=== PATIENT | female | born 1995 | race Caucasian/White ===

== ENCOUNTER 2025-03-18 17:26 | Emergency (ER) | payer MEDICARE, MEDICAID ==
[~2025-03-18] VITALS: Ht 152.4 cm; Wt 60.2 kg
[~2025-03-18 17:26] MED LIST: ATOM40CA16 PO; BENZ1GEL8 EX; CARB300C PO; CELE20TA PO; DOCU100C16 PO; IBUP-1022 PO; KEPP1TAB2 PO; LORA-243 PO; MONT-5 PO; POLY17PO18 PO; RANI-397 PO; TRAZ1TAB6 PO
[2025-03-18 17:38] VITALS: BP 157/102; TEMP 99.1; O2SAT 99
[2025-03-18] MEDS ORDERED: PRAZ1CAP (18:12)
[2025-03-18] MEDS ORDERED: OLAN2.5T53 (18:12)
[2025-03-18] MEDS ORDERED: BUSP10TA (18:12)
[2025-03-18 19:03] LABS: BASO # 0.1 10^3/uL (0.0-0.2); BASO % 1.7 % (0.0-1.0); EOS # 0.2 10^3/uL (0.0-0.5); EOS % 2.6 % (0.0-3.0); LYMPH # 2.4 10^3/uL (1.5-5.0); LYMPH % 30.4 % (24.0-44.0); MONO # 0.5 10^3/uL (0.0-0.8); MONO % 6.0 % (2.0-8.0); NEUTROPHILS # 4.6 10^3/uL (1.5-8.5); NEUTROPHILS % 59.0 % (36.0-66.0); PLATELET COUNT, AUTOMATED 284 10^3/uL (150-450)
[2025-03-18 19:26] LABS: KETONE, URINE AUTO RFX NEGATIVE (NEGATIVE); LEUKOCYTE ESTERASE UR AUTO RFX NEGATIVE (NEGATIVE); NITRITE, URINE AUTO RFX NEGATIVE (NEGATIVE); RBC, URINE AUTO RFX 1 /HPF (0-3); SQUAM EPITHELIAL CELL UR AURFX 6 /HPF (0-6); WBC, URINE AUTO RFX 1 /HPF (0-3)
[2025-03-18 19:29] LABS: ALT/SGPT 18 U/L (7.0-40); AST/SGOT 20 U/L (<34); CALCIUM LEVEL 10.3 MG/DL (8.5-10.1); CARBON DIOXIDE LEVEL 22 MMOL/L (20-31); CHLORIDE LEVEL 108 MMOL/L (98-107); CREATININE FOR GFR 0.68 MG/DL (0.55-1.30); GLOMERULAR FILTRATION RATE > 90.0 (>60); POTASSIUM SERUM 3.7 MMOL/L (3.5-5.1); SODIUM LEVEL 144 MMOL/L (136-145)
[2025-03-18 19:37] LABS: HCG, SERUM QUALITATIVE NEGATIVE (NEGATIVE)
[2025-03-18 20:04] LABS: Trichomonas vaginalis (AMP) NOT DETECTED (NEGATIVE)
[2025-03-18 20:28] LABS: GC DNA AMPLIFICATION NEGATIVE (NEGATIVE)
== END 2025-03-18 22:25 | disposition left against medical advice (07) ==
LOC: M ED 17:26
DX: Z53.21 Procedure and treatment not carried out due to patient leaving prior to being seen by health care provider (principal)

== ENCOUNTER 2025-03-28 17:55 | Emergency (ER) | payer MEDICARE, MEDICAID ==
[~2025-03-28] VITALS: Ht 152.4 cm; Wt 61.1 kg
[~2025-03-28 17:55] MED LIST changes: +BUSP10TA; +OLAN2.5T53; +PRAZ1CAP
[2025-03-28 18:21] VITALS: TEMP 99.1
[2025-03-28 18:30] LABS: IONIZED CALCIUM 4.8 MG/DL (4.5-5.3)
[2025-03-28 18:36] LABS: ABG BASE EXCESS -3.2 (-2.0-2.0); ABG HCO3 20.8 MMOL/L (22.0-26.0); ABG O2 SATURATION 97.3 % (95.0-99.0); ABG PARTIAL PRESSURE CO2 34.3 mmHg (35.0-45.0); ABG PARTIAL PRESSURE O2 95.4 mmHg (75.0-100.0); ABG STANDARD HCO3 21.8 MMOL/L. (22.0-26.0); ABG TOTAL CO2 21.8 MMOL/L (22.0-29.0); ABG pH (ARTERIAL) 7.400 UNITS (7.350-7.450)
[2025-03-28 18:39] LABS: BASO # 0.1 10^3/uL (0.0-0.2); BASO % 1.1 % (0.0-1.0); EOS # 0.3 10^3/uL (0.0-0.5); EOS % 3.3 % (0.0-3.0); LYMPH # 2.4 10^3/uL (1.5-5.0); LYMPH % 27.6 % (24.0-44.0); MONO # 0.5 10^3/uL (0.0-0.8); MONO % 5.9 % (2.0-8.0); NEUTROPHILS # 5.5 10^3/uL (1.5-8.5); NEUTROPHILS % 61.8 % (36.0-66.0); PLATELET COUNT, AUTOMATED 249 10^3/uL (150-450)
[2025-03-28 19:04] LABS: CPK CREATINE PHOSPHOKINASE 104 U/L (34-145)
[2025-03-28 19:05] LABS: ALT/SGPT 20 U/L (7.0-40); AST/SGOT 22 U/L (<34); CALCIUM LEVEL 9.6 MG/DL (8.5-10.1); CARBON DIOXIDE LEVEL 23 MMOL/L (20-31); CHLORIDE LEVEL 103 MMOL/L (98-107); CREATININE FOR GFR 0.74 MG/DL (0.55-1.30); GLOMERULAR FILTRATION RATE > 90.0 (>60); MAGNESIUM LEVEL 2.0 MG/DL (1.8-2.4); PHOSPHORUS LEVEL 4.3 MG/DL (2.5-4.9); POTASSIUM SERUM 4.1 MMOL/L (3.5-5.1); SODIUM LEVEL 141 MMOL/L (136-145)
[2025-03-28 19:12] LABS: HCG, SERUM QUALITATIVE NEGATIVE (NEGATIVE)
[2025-03-28] MEDS: levETIRAcetam INJection 1,000 MG in IV 1 EA IV ONE (19:16)
[2025-03-28 19:29] LABS: ETHYL ALCOHOL (ETHANOL) 0.022 % (0.000-0.010)
[2025-03-28 21:00] VITALS: BP 118/76
[2025-03-28 21:15] VITALS: O2SAT 90
[2025-03-28] MEDS: levETIRAcetam INJection 500 MG in DEXTROSE 5% (D5W) MINI-BAG PLU 100 ML IV ONE (21:22)
[2025-03-28] MEDS: NS (Normal Saline) 0.9% 1,000 ML IV ONE (21:22)
== END 2025-03-28 21:20 | disposition left against medical advice (07) ==
LOC: EDBD 17:55 → M ED 17:55
DX: G40.909 Epilepsy, unspecified, not intractable, without status epilepticus (principal); F90.9 Attention-deficit hyperactivity disorder, unspecified type; F41.9 Anxiety disorder, unspecified; F32.A Depression, unspecified; F17.210 Nicotine dependence, cigarettes, uncomplicated; F10.10 Alcohol abuse, uncomplicated; Z88.1 Allergy status to other antibiotic agents; Z88.8 Allergy status to other drugs, medicaments and biological substances; Z79.899 Other long term (current) drug therapy; Z53.9 Procedure and treatment not carried out, unspecified reason
CPT/HCPCS: 36600; 71045; 80047; 80048; 80076; 80177; 82077; 82140; 82330; 82550; 82803; 83605; 83735; 84100; 84703; 85025; 87486; 87581; 87633; 87798; 93005; 93041; 94760; 96365; 96366; 99285; J1953